=== PATIENT | female | born 1965 | race Caucasian/White ===

== ENCOUNTER 2021-03-18 14:03 | Emergency (ER) | payer MEDICAID ==
[~2021-03-18 14:03] MED LIST: AMOX875T10 PO
== END 2021-03-18 17:59 | disposition left against medical advice (07) ==
LOC: ER 14:03
DX: J00 Acute nasopharyngitis [common cold] (principal); R05 Cough; R09.89 Other specified symptoms and signs involving the circulatory and respiratory systems; Z53.21 Procedure and treatment not carried out due to patient leaving prior to being seen by health care provider

== ENCOUNTER 2021-10-16 09:38 | Emergency (ER) | payer MEDICAID ==
[~2021-10-16] VITALS: Ht 160 cm; Wt 58.8 kg
[2021-10-16] MEDS ORDERED: GABA300C PO (10:03)
[2021-10-16] MEDS ORDERED: CHLO118M PO (10:03)
[2021-10-16] MEDS ORDERED: AMOX-117 PO (10:03)
[2021-10-16 10:08] VITALS: BP 125/72
== END 2021-10-16 19:02 | disposition home or self-care (01) ==
LOC: ER 09:38
DX: K05.10 Chronic gingivitis, plaque induced (principal); K02.9 Dental caries, unspecified; Z98.818 Other dental procedure status; Z88.8 Allergy status to other drugs, medicaments and biological substances; Z79.2 Long term (current) use of antibiotics; Z79.899 Other long term (current) drug therapy; Z86.14 Personal history of Methicillin resistant Staphylococcus aureus infection
CPT/HCPCS: 99283

== ENCOUNTER 2022-01-23 20:08 | Emergency (ER) | payer MEDICAID ==
[~2022-01-23] VITALS: Ht 157.5 cm; Wt 63.6 kg
[~2022-01-23 20:08] MED LIST changes: +CHLO118M PO; +GABA300C PO; +IBUP-1986 PO
[2022-01-23 20:21] VITALS: BP 133/69
[2022-01-23] MEDS ORDERED: ketorolac tromethamine 15mg/ml inj. IV ONE (22:00)
[2022-01-23] MEDS ORDERED: methylPREDNISolone sod succ 125mg/2ml vial IV ONE (22:00)
[2022-01-23] MEDS ORDERED: normal saline 1000ml 1,000 ML IV ONE (22:00)
[2022-01-23] MEDS ORDERED: iohexol 300mg/ml 100ml inj. ONE (22:18)
[2022-01-23 22:36] LABS: BASOPHILS # (AUTO) 0.1 X10'3 (0-0.2); BASOPHILS % (AUTO) 1.3 % (0-1); EOSINOPHILS # (AUTO) 0.6 X10'3 (0-0.9); EOSINOPHILS % (AUTO) 6.3 % (0-6); HEMATOCRIT 43.4 % (35.0-45.0); HEMOGLOBIN 15.1 g/dl (12.0-16.0); LYMPHOCYTES # (AUTO) 1.6 X10'3 (1.1-4.8); LYMPHOCYTES % (AUTO) 16.4 % (21-51); MEAN CORPUSCULAR HEMOGLOBIN 29.9 PG (27.0-31.0); MEAN CORPUSCULAR HGB CONC 34.8 g/dL (33.0-36.5); MEAN CORPUSCULAR VOLUME 85.9 FL (78-98); MEAN PLATELET VOLUME 7.9 FL (7.4-10.4); MONOCYTES % (AUTO) 10.3 % (2-12); NEUTROPHILS # (AUTO) 6.3 X10'3 (1.8-7.7); NEUTROPHILS % (AUTO) 65.7 % (42-75); PLATELET COUNT 326 X10'3 (140-440); RED BLOOD COUNT 5.05 X10'6 (4.20-5.60); RED CELL DISTRIBUTION WIDTH 13.5 % (11.5-14.5); WHITE BLOOD COUNT 9.5 X10'3 (4.5-11.0)
[2022-01-23 22:45] LABS: ALANINE AMINOTRANSFERASE 113 U/L (12-78); ALBUMIN 3.6 G/DL (3.4-5.0); ALKALINE PHOSPHATASE 112 IU/L (46-116); ANION GAP 5 (8-16); ASPARTATE AMINO TRANSFERASE 59 U/L (10-37); BILIRUBIN,TOTAL 0.3 MG/DL (0.1-1.0); BLOOD UREA NITROGEN 17 MG/DL (7-18); BUN/CREATININE RATIO 23.3 (6.6-38.0); CALCIUM 8.9 MG/DL (8.5-10.1); CHLORIDE 105 MMOL/L (99-107); CREATININE 0.73 MG/DL (0.40-0.90); GLUCOSE 94 MG/DL (70-104); POTASSIUM 3.7 MMOL/L (3.5-5.1); SODIUM 141 MMOL/L (135-145); TOTAL CARBON DIOXIDE 30.9 MMOL/L (24-32); TOTAL PROTEIN 7.1 G/DL (6.4-8.2); eGFR 82 ML/MIN
[2022-01-24] MEDS ORDERED: AMOX-117 PO (00:11)
[2022-01-24] MEDS ORDERED: amox tr/potassium clavulanate 875/125mg TAB PO ONE (00:15)
== END 2022-01-24 00:48 | disposition home or self-care (01) ==
LOC: ER 20:09
DX: K11.20 Sialoadenitis, unspecified (principal); K08.89 Other specified disorders of teeth and supporting structures; F41.9 Anxiety disorder, unspecified; F17.200 Nicotine dependence, unspecified, uncomplicated; Z56.0 Unemployment, unspecified; Z59.00 Homelessness unspecified; Z98.890 Other specified postprocedural states; Z86.14 Personal history of Methicillin resistant Staphylococcus aureus infection; Z88.1 Allergy status to other antibiotic agents; Z79.2 Long term (current) use of antibiotics; Z79.899 Other long term (current) drug therapy
CPT/HCPCS: 36415; 70491; 80053; 85025; 96374; 96375; 99285; J1885; J2930; J7030; Q9967

== ENCOUNTER 2022-11-17 04:26 | Emergency (ER) | payer MEDICAID ==
[~2022-11-17] VITALS: Ht 157.5 cm; Wt 50.0 kg
[2022-11-17] MEDS ORDERED: quetiapine 100mg tablet PO SCH (05:20)
[2022-11-17] MEDS ORDERED: QUET25TA PO (05:29)
[2022-11-17 05:52] VITALS: BP 145/72
== END 2022-11-17 05:54 | disposition home or self-care (01) ==
LOC: ER 04:27
DX: Z00.00 Encounter for general adult medical examination without abnormal findings (principal); F11.23 Opioid dependence with withdrawal; F17.200 Nicotine dependence, unspecified, uncomplicated; F15.20 Other stimulant dependence, uncomplicated; Z88.1 Allergy status to other antibiotic agents; Z59.00 Homelessness unspecified; Z56.0 Unemployment, unspecified
CPT/HCPCS: 99283

== ENCOUNTER 2022-12-25 11:54 | Emergency (ER) | payer MEDICAID ==
[~2022-12-25] VITALS: Ht 157.5 cm; Wt 61.0 kg
[~2022-12-25 11:54] MED LIST changes: +QUET25TA PO
[2022-12-25 12:07] VITALS: BP 144/69
[2022-12-25] MEDS ORDERED: iohexol 300mg/ml 100ml inj. ONE (14:48)
[2022-12-25] MEDS ORDERED: dexamethasone sod phosphate 10mg/ml inj PO STA (16:42)
[2022-12-25] MEDS ORDERED: BENZ1LOZ74 PO (16:44)
[2022-12-25] MEDS ORDERED: ibuprofen tablet 400 MG TABLET PO ONE (16:50)
== END 2022-12-25 17:18 | disposition home or self-care (01) ==
LOC: ER 11:55
DX: J39.2 Other diseases of pharynx (principal); F17.200 Nicotine dependence, unspecified, uncomplicated; Z88.1 Allergy status to other antibiotic agents; Z59.00 Homelessness unspecified; Z56.0 Unemployment, unspecified
CPT/HCPCS: 70491; 99285; J1100; J3490; Q9967

== ENCOUNTER 2023-02-07 08:10 | Day surgery (SDC) | payer MEDICAID ==
[~2023-02-07] VITALS: Ht 165.1 cm; Wt 64.1 kg
[~2023-02-07 08:10] MED LIST changes: +BENZ1LOZ74 PO
[2023-02-07 08:17] VITALS: BP 119/69
[2023-02-07] MEDS ORDERED: IBUP-1984 PO (08:22)
[2023-02-07] MEDS ORDERED: QUET25TA PO (08:22)
[2023-02-07] MEDS ORDERED: fentaNYL/PF 50MCG/1 ML 2ML syringe ONE (08:55)
[2023-02-07] MEDS ORDERED: LIDOcaine Viscous 15ml cup ONE (08:55)
[2023-02-07] MEDS ORDERED: MIDAZolam 1 MG/ML 5ML VIAL ONE (08:55)
[2023-02-07 09:35] VITALS: BP 136/71
[2023-02-07 09:45] VITALS: BP 134/73
[2023-02-07 09:55] VITALS: BP 126/71
[2023-02-07 10:05] VITALS: BP 122/70
== END 2023-02-07 10:10 | disposition home or self-care (01) ==
LOC: GI LAB 08:10
PROVIDERS: ATTEND Internal Medicine Gastroenterology
DX: K21.9 Gastro-esophageal reflux disease without esophagitis (principal); K44.9 Diaphragmatic hernia without obstruction or gangrene; K22.89 Other specified disease of esophagus; Z88.1 Allergy status to other antibiotic agents; Z87.891 Personal history of nicotine dependence
CPT/HCPCS: 43239; 99152; J2250; J3010; J7030; Z7512; A4620

== ENCOUNTER 2024-03-29 10:44 | Emergency (ER) | payer MEDICAID ==
[~2024-03-29] VITALS: Ht 157.5 cm; Wt 60.5 kg
[~2024-03-29 10:44] MED LIST changes: -AMOX875T10 PO; -BENZ1LOZ74 PO; -CHLO118M PO; -GABA300C PO; +IBUP-1984 PO
[2024-03-29 10:47] VITALS: BP 108/53; PULSE 97; O2SAT 96
[2024-03-29 11:22] VITALS: RESP 15; TEMP 97.1
== END 2024-03-29 11:23 | disposition home or self-care (01) ==
LOC: ER 10:45
DX: Z02.89 Encounter for other administrative examinations (principal); F41.9 Anxiety disorder, unspecified; F15.90 Other stimulant use, unspecified, uncomplicated; F11.90 Opioid use, unspecified, uncomplicated; Z56.0 Unemployment, unspecified; Z59.00 Homelessness unspecified; Z88.1 Allergy status to other antibiotic agents; Z79.1 Long term (current) use of non-steroidal anti-inflammatories (NSAID); Z79.899 Other long term (current) drug therapy
CPT/HCPCS: 99281

== ENCOUNTER 2024-04-04 18:23 | Emergency (ER) | payer MEDICAID ==
[~2024-04-04] VITALS: Ht 157.5 cm; Wt 63.0 kg
[2024-04-04 20:59] LABS: BASOPHILS # (AUTO) 0.1 X10'3 (0-0.2); BASOPHILS % (AUTO) 0.8 % (0-1); EOSINOPHILS # (AUTO) 0.8 X10'3 (0-0.9); EOSINOPHILS % (AUTO) 8.4 % (0-6); HEMATOCRIT 40.4 % (35.0-45.0); HEMOGLOBIN 13.6 g/dl (12.0-16.0); LYMPHOCYTES # (AUTO) 1.3 X10'3 (1.1-4.8); MEAN CORPUSCULAR HGB CONC 33.8 g/dL (33.0-36.5); MEAN CORPUSCULAR VOLUME 88.9 FL (78-98); MEAN PLATELET VOLUME 7.6 FL (7.4-10.4); MONOCYTES # (AUTO) 1.1 X10'3 (0-0.9); MONOCYTES % (AUTO) 12.3 % (2-12); NEUTROPHILS % (AUTO) 64.5 % (42-75); PLATELET COUNT 309 X10'3 (140-440); RED BLOOD COUNT 4.55 X10'6 (4.20-5.60); RED CELL DISTRIBUTION WIDTH 13.5 % (11.5-14.5); WHITE BLOOD COUNT 9.3 X10'3 (4.5-11.0)
[2024-04-04 21:03] LABS: ALBUMIN 3.3 G/DL (3.4-5.0); ANION GAP 6 (8-16); BLOOD UREA NITROGEN 8 MG/DL (7-18); BUN/CREATININE RATIO 11.3 (10.0-20.0); CALCIUM 8.7 MG/DL (8.5-10.1); CHLORIDE 104 MMOL/L (99-107); CREATININE 0.71 MG/DL (0.40-0.90); GLUCOSE 89 MG/DL (70-104); POTASSIUM 4.2 MMOL/L (3.5-5.1); SODIUM 143 MMOL/L (135-145); TOTAL CARBON DIOXIDE 32.7 MMOL/L (24-32); eCRCL 67 ML/MIN; eGFR 84 ML/MIN
[2024-04-04] MEDS: dexamethasone sod phosphate 10mg/ml inj IV STA (21:38)
[2024-04-04] MEDS ORDERED: amox tr/potassium clavulanate 875/125mg TAB PO ONE (23:00)
[2024-04-04 23:02] VITALS: BP 133/65; PULSE 75; RESP 16; TEMP 97.7; O2SAT 98
[2024-04-04] MEDS ORDERED: DEC4T PO (23:02)
[2024-04-04] MEDS ORDERED: AMOX-117 PO (23:02)
== END 2024-04-04 23:10 | disposition home or self-care (01) ==
LOC: ER 18:23
DX: R59.1 Generalized enlarged lymph nodes (principal); F15.90 Other stimulant use, unspecified, uncomplicated; Z88.1 Allergy status to other antibiotic agents; Z79.2 Long term (current) use of antibiotics; Z79.899 Other long term (current) drug therapy; Z79.1 Long term (current) use of non-steroidal anti-inflammatories (NSAID)
CPT/HCPCS: 36415; 70490; 80048; 85025; 96374; 99285; J1100

== ENCOUNTER 2024-08-04 09:14 | Emergency (ER) | payer MEDICAID ==
[~2024-08-04] VITALS: Ht 158.8 cm; Wt 64.5 kg
[~2024-08-04 09:14] MED LIST changes: +DEC4T PO
[2024-08-04 09:26] VITALS: BP 109/63; PULSE 93; RESP 18; TEMP 96; O2SAT 95
[2024-08-04] MEDS ORDERED: MUPI22OI30 TOP (09:38)
== END 2024-08-04 09:50 | disposition home or self-care (01) ==
LOC: ER 09:15
DX: L08.89 Other specified local infections of the skin and subcutaneous tissue (principal); B95.7 Other staphylococcus as the cause of diseases classified elsewhere; F15.90 Other stimulant use, unspecified, uncomplicated; F11.90 Opioid use, unspecified, uncomplicated; Z76.0 Encounter for issue of repeat prescription; Z88.1 Allergy status to other antibiotic agents; Z79.1 Long term (current) use of non-steroidal anti-inflammatories (NSAID); Z79.899 Other long term (current) drug therapy; Z59.00 Homelessness unspecified; Z56.0 Unemployment, unspecified
CPT/HCPCS: 99281; 99282

== ENCOUNTER 2024-09-12 15:34 | Emergency (ER) | payer MEDICAID ==
[~2024-09-12] VITALS: Ht 157.5 cm; Wt 65.9 kg
[2024-09-12 15:38] VITALS: TEMP 98.5
[2024-09-12 16:18] LABS: BASOPHILS # (AUTO) 0.1 X10'3 (0-0.2); BASOPHILS % (AUTO) 0.8 % (0-1); EOSINOPHILS # (AUTO) 0.3 X10'3 (0-0.9); HEMATOCRIT 37.3 % (35.0-45.0); HEMOGLOBIN 12.7 g/dl (12.0-16.0); LYMPHOCYTES # (AUTO) 0.6 X10'3 (1.1-4.8); MEAN CORPUSCULAR HEMOGLOBIN 29.2 PG (27.0-31.0); MEAN CORPUSCULAR HGB CONC 34.2 g/dL (33.0-36.5); MEAN CORPUSCULAR VOLUME 85.4 FL (78-98); MEAN PLATELET VOLUME 7.3 FL (7.4-10.4); MONOCYTES # (AUTO) 0.7 X10'3 (0-0.9); MONOCYTES % (AUTO) 10.2 % (2-12); NEUTROPHILS # (AUTO) 4.8 X10'3 (1.8-7.7); PLATELET COUNT 299 X10'3 (140-440); RED BLOOD COUNT 4.36 X10'6 (4.20-5.60); RED CELL DISTRIBUTION WIDTH 15.3 % (11.5-14.5); WHITE BLOOD COUNT 6.5 X10'3 (4.5-11.0)
[2024-09-12 16:35] LABS: ALANINE AMINOTRANSFERASE 23 U/L (12-78); ALBUMIN 3.7 G/DL (3.4-5.0); ALBUMIN/GLOBULIN RATIO 0.9 (1.1-1.5); ALKALINE PHOSPHATASE 134 IU/L (46-116); ANION GAP 5 (8-16); ASPARTATE AMINO TRANSFERASE 20 U/L (10-37); BILIRUBIN,TOTAL 0.4 MG/DL (0.1-1.0); BLOOD UREA NITROGEN 8 MG/DL (7-18); CALCIUM 9.1 MG/DL (8.5-10.1); CHLORIDE 104 MMOL/L (99-107); CREATININE 0.73 MG/DL (0.40-0.90); GLUCOSE 101 MG/DL (70-104); SODIUM 140 MMOL/L (135-145); TOTAL CARBON DIOXIDE 31.2 MMOL/L (24-32); TOTAL PROTEIN 7.6 G/DL (6.4-8.2); eCRCL 65 ML/MIN; eGFR 81 ML/MIN
[2024-09-12 16:43] LABS: PRO BRAIN NATRIURETIC PEPTIDE 50 PG/ML (0-125)
[2024-09-12 17:24] LABS: POTASSIUM 3.5 MMOL/L (3.5-5.1)
[2024-09-12] MEDS ORDERED: CIPR-202 PO (18:32)
[2024-09-12] MEDS: ketorolac trometh 15mg/ml vial 15 MG/ML ML IV ONE (20:25)
[2024-09-12] MEDS: normal saline 1000ml 1,000 ML IV ONE (20:25)
[2024-09-12] MEDS: ciprofloxacin/D5W 200mg/100mL 100 ML IV ONE (20:30)
[2024-09-13 00:31] VITALS: BP 145/66; PULSE 88; RESP 16; O2SAT 99
== END 2024-09-13 00:33 | disposition home or self-care (01) ==
LOC: ER 15:35
DX: R07.89 Other chest pain (principal); J06.9 Acute upper respiratory infection, unspecified; F15.90 Other stimulant use, unspecified, uncomplicated; Z88.1 Allergy status to other antibiotic agents
CPT/HCPCS: 36415; 71045; 80053; 83880; 84484; 85025; 93005; 96365; 96375; 99285; J0744; J1885; J7030

== ENCOUNTER 2024-10-30 10:13 | Emergency (ER) | payer MEDICAID ==
[~2024-10-30] VITALS: Ht 157.5 cm; Wt 66.4 kg
[2024-10-30 10:49] LABS: BASOPHILS # (AUTO) 0.1 X10'3 (0-0.2); BASOPHILS % (AUTO) 1.5 % (0-1); EOSINOPHILS # (AUTO) 0.4 X10'3 (0-0.9); EOSINOPHILS % (AUTO) 7.3 % (0-6); HEMATOCRIT 38.8 % (35.0-45.0); HEMOGLOBIN 13.1 g/dl (12.0-16.0); LYMPHOCYTES # (AUTO) 0.7 X10'3 (1.1-4.8); LYMPHOCYTES % (AUTO) 13.7 % (21-51); MEAN CORPUSCULAR HEMOGLOBIN 31.4 PG (27.0-31.0); MEAN CORPUSCULAR HGB CONC 33.8 g/dL (33.0-36.5); MEAN CORPUSCULAR VOLUME 92.7 FL (78-98); MEAN PLATELET VOLUME 7.6 FL (7.4-10.4); MONOCYTES # (AUTO) 0.6 X10'3 (0-0.9); MONOCYTES % (AUTO) 10.5 % (2-12); NEUTROPHILS # (AUTO) 3.7 X10'3 (1.8-7.7); PLATELET COUNT 339 X10'3 (140-440); RED BLOOD COUNT 4.19 X10'6 (4.20-5.60); RED CELL DISTRIBUTION WIDTH 13.9 % (11.5-14.5); WHITE BLOOD COUNT 5.5 X10'3 (4.5-11.0)
[2024-10-30 11:07] LABS: ALANINE AMINOTRANSFERASE 41 U/L (12-78); ALBUMIN 3.4 G/DL (3.4-5.0); ALKALINE PHOSPHATASE 108 IU/L (46-116); ANION GAP 8 (8-16); ASPARTATE AMINO TRANSFERASE 21 U/L (10-37); BILIRUBIN,TOTAL 0.4 MG/DL (0.1-1.0); BLOOD UREA NITROGEN 9 MG/DL (7-18); CALCIUM 8.8 MG/DL (8.5-10.1); CHLORIDE 107 MMOL/L (99-107); CREATININE 0.53 MG/DL (0.40-0.90); GLUCOSE 103 MG/DL (70-104); POTASSIUM 3.5 MMOL/L (3.5-5.1); PRO BRAIN NATRIURETIC PEPTIDE 46 PG/ML (0-125); SODIUM 145 MMOL/L (135-145); TOTAL CARBON DIOXIDE 30.4 MMOL/L (24-32); TOTAL PROTEIN 6.8 G/DL (6.4-8.2); eCRCL 89 ML/MIN; eGFR > 90 ML/MIN
[2024-10-30 12:44] VITALS: BP 150/76; PULSE 84; RESP 16; TEMP 97.8; O2SAT 99
[2024-10-30 13:32] LABS: STREP A SCREEN NEGATIVE (Neg)
== END 2024-10-30 13:54 | disposition home or self-care (01) ==
LOC: ER 10:13
DX: J06.9 Acute upper respiratory infection, unspecified (principal); F41.9 Anxiety disorder, unspecified; F15.90 Other stimulant use, unspecified, uncomplicated; F11.90 Opioid use, unspecified, uncomplicated; Z88.1 Allergy status to other antibiotic agents; Z79.52 Long term (current) use of systemic steroids; Z79.1 Long term (current) use of non-steroidal anti-inflammatories (NSAID); Z79.899 Other long term (current) drug therapy; Z56.0 Unemployment, unspecified; Z59.00 Homelessness unspecified
CPT/HCPCS: 36415; 71045; 80053; 83880; 84484; 85025; 87081; 87880; 93005; 99285

== ENCOUNTER 2024-11-17 17:55 | Emergency (ER) | payer MEDICAID ==
[~2024-11-17] VITALS: Ht 157.5 cm; Wt 67.0 kg
[2024-11-17 17:56] VITALS: BP 121/42; PULSE 90; RESP 16; TEMP 98.1; O2SAT 96
[2024-11-17] MEDS ORDERED: dexamethasone sod phosphate 10mg/ml inj PO STA (18:54)
[2024-11-17] MEDS ORDERED: PRED10TA23 PO (19:07)
[2024-11-17] MEDS ORDERED: AMOX500C2 PO (19:07)
[2024-11-17] MEDS: amoxicillin 250mg capsule PO ONE (19:19)
[2024-11-17] MEDS: DEXAMETHASONE 6 MG TABLET PO STA (19:19)
[2024-11-17] MEDS: dexamethasone 4mg tablet PO STA (19:19)
== END 2024-11-17 19:25 | disposition home or self-care (01) ==
LOC: ER 17:56
DX: K04.7 Periapical abscess without sinus (principal); F41.9 Anxiety disorder, unspecified; F15.90 Other stimulant use, unspecified, uncomplicated; F11.90 Opioid use, unspecified, uncomplicated; Z88.1 Allergy status to other antibiotic agents; Z79.1 Long term (current) use of non-steroidal anti-inflammatories (NSAID); Z79.899 Other long term (current) drug therapy; Z56.0 Unemployment, unspecified; Z59.00 Homelessness unspecified
CPT/HCPCS: 99284; J8540

== ENCOUNTER 2025-05-31 11:13 | Emergency (ER) | payer MEDICAID ==
[~2025-05-31] VITALS: Ht 157.5 cm; Wt 70.0 kg
[2025-05-31 12:31] LABS: MEAN PLATELET VOLUME 7.0 FL (7.4-10.4); RED CELL DISTRIBUTION WIDTH 16.8 % (11.5-14.5)
[2025-05-31 12:36] LABS: CREATININE 0.66 MG/DL (0.40-0.90); TOTAL CARBON DIOXIDE 31.5 MMOL/L (24-32); eCRCL 72 ML/MIN; eGFR > 90 ML/MIN
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
[2025-05-31] MEDS ORDERED: iohexol 300mg/ml 100ml inj. ONE (13:19)
--- NOTE | 2025-05-31 17:43 | RADIOLOGY REPORT ---
EXAM: CT CT NECK SOFT TISSUES W/ IV CONTRAST INDICATION: pain under chin several weeks, hx of MRSA infection in this region TECHNIQUE: Volumetric multidetector CT images of the cervical soft tissues were obtained after admini stration of 100 ml low osmolar intravenous contrast. All CT scans at this facility use dose modulatio n, iterative reconstruction, and/or weight based dosing when appropriate to reduce radiation dose to as low as reasonably achievable. COMPARISON: CT CT NECK SOFT TISSUES on DOS: 04/04/24 FINDINGS: [ORBITS, PARANASAL SINUSES, AND SKULL BASE]: Normal. [NASOPHARYNX: Normal. [SUPRAHYOID NECK]: Slight prominence of the adenoid tonsils, palatine tonsils with bilateral palatine tonsilliths. Finding may be reactive. Mild prominence of bilateral submandibular glands which appea rs to be symmetric with slight enhancement correlate for reactive sialoadenitis. Parotid gland are sy mmetric. [INFRAHYOID NECK]: Normal appearance of the larynx, hypopharynx, and supraglottis. [THYROID]: Normal appearance of the thyroid gland. [LYMPH NODES]: There is no pathologically enlarged or necrotic lymph nodes. Bilateral symmetric likel y reactive cervical chain lymph nodes. [VASCULATURE STRUCTURES]: The vascular structures of the neck appear patent. [OTHER]: The visualized lung apices are clear. The limited visualized portions of the brain are unrem arkable. The osseous structures are unremarkable. IMPRESSION: 1. No evidence of cervical mass lesion, pathologically enlarged lymph nodes or fluid collection. 2. No drainable fluid collection. 3. Slight prominence of the adenoid tonsils, palatine tonsils with bilateral palatine tonsilliths. F inding may be reactive. 4. Mild prominence of bilateral submandibular glands which appears to be symmetric with slight enhanc ement correlate for reactive sialoadenitis. 5. Bilateral symmetric likely reactive cervical chain lymph nodes.
[2025-05-31] MEDS ORDERED: AMOX-117 PO (17:56)
[2025-05-31] MEDS: amox tr/potassium clavulanate 875/125mg TAB PO ONE (18:08)
[2025-05-31 18:14] VITALS: BP 125/55; PULSE 82; RESP 18; TEMP 97.9; O2SAT 98
== END 2025-05-31 18:10 | disposition home or self-care (01) ==
LOC: ER 11:13
DX: K11.20 Sialoadenitis, unspecified (principal); F15.90 Other stimulant use, unspecified, uncomplicated; F11.90 Opioid use, unspecified, uncomplicated; F41.9 Anxiety disorder, unspecified; Z88.1 Allergy status to other antibiotic agents; Z79.899 Other long term (current) drug therapy; Z56.0 Unemployment, unspecified; Z59.00 Homelessness unspecified; Z86.14 Personal history of Methicillin resistant Staphylococcus aureus infection
CPT/HCPCS: 36415; 70491; 80048; 85025; 99285; Q9967

== ENCOUNTER 2025-08-19 10:17 | Emergency (ER) | payer MEDICAID ==
[~2025-08-19] VITALS: Ht 157.5 cm; Wt 68.4 kg
[2025-08-19 10:27] VITALS: BP 155/72; PULSE 120; RESP 16; TEMP 98; O2SAT 98
--- NOTE | 2025-08-19 12:26 | Physician Documentation ---
History of Present Illness ~ General Chief Complaint: See Chief Complaint Stated Complaint: METH ABUSE Time Seen by MD: 12:15 Primary Medical Doctor: [facility] History of Present Illness Initial Comments 60-year-old female presents after relapsing on methamphetamine three days ago she has now developed throat pain and feeling like her throat swollen.. Denies any chest pain or shortness of breath Medication Reconciliation Allergies: Coded Allergies: doxycycline (Verified Allergy, Unknown, burning to feet and hands., 10/30/24) Scheduled Amoxicillin Trihydrate (Amoxicillin), 1 CAP PO Q12H Dexamethasone (Decadron), 2 TAB PO DAILY Ibuprofen (Ibuprofen), 1 TAB PO Q8H Ibuprofen* (Motrin*), 800 MG PO HS, (Reported) Quetiapine Fumarate (Seroquel), 1 TAB PO HS Quetiapine Fumarate (Seroquel), 1 TAB PO HS, (Reported) Past Medical History Past Medical History: MRSA Abscess, Anxiety Past Surgical History: other Drug Use: methamphetamine, heroin Lives In: Homeless Occupation: unemployed Physical Exam Physical Exam Vital Signs: Temperature: 98.0, Source: Temporal, Heart Rate: 120, Respiratory Rate: 16, BP: 155/72, Pulse Oximetry: 98, Weight: 68.400 Oxygen Flow Rate: 0 Progress Results/Orders Results/Orders Orders - GEO REINA FENDER REPAIRER Chest,Single View (08/19/25 12:38) Completed Orders - GEO REINA FENDER REPAIRER Chest,Single View (08/19/25 12:38) Vital Signs 08/19/25 08/19/25 10:27 13:14 Temp 98.0 Pulse 120 Resp 16 B/P (MAP) 155/72 Pulse Ox 98 O2 Flow Rate 0 Medical Decision Making Additional information obtaine: old records Findings This patient is also complaining of mouth pain however she does not have any remaining teeth that has they were all extracted. She does not have any trismus or submandibular swelling. I am going to treat her empirically this time and discharged for outpatient therapy Differential Diagnosis l Departure Disposition: HOME / SELF CARE / HOMELESS Impression: Primary Impression: General medical exam Additional Impression: Toothache Condition: Improved Discharge Instructions: Methamphetamines Use Disorder Referrals: NO PRIMARY CARE PROVIDER (PCP) Prescriptions Amoxicillin Trihydrate (Amoxicillin) 500 Mg Capsule 1 CAP PO Q12H for 10 Days, #20 CAP Prov: GEO REINA NP 08/19/25 Signature Scribe Signature: de Attestation: Scribed for Geo Reina Np by Geo Callahan NP . 08/19/25 18:39 GEO REINA NP Aug 19, 2025 12:26
--- NOTE | 2025-08-19 12:49 | RADIOLOGY REPORT ---
EXAM: DI CHEST,SINGLE VIEW Indication: cough Technique: Single frontal view of the chest was obtained Comparison: DI CHEST,SINGLE VIEW on DOS: 10/30/24, DI CHEST,SINGLE VIEW on DOS: 09/12/24 FINDINGS: Lines and Tubes: None Lungs: No focal consolidation. Pleura: No effusion. No pneumothorax. Cardiomediastinal contours: Unremarkable Bones: No acute osseous abnormality. IMPRESSION: No acute cardiopulmonary disease.
[2025-08-19] MEDS ORDERED: AMOX-101 PO (12:56)
[2025-08-20] MEDS ORDERED: IBUP-1986 PO (18:50)
[2025-08-20] MEDS ORDERED: SULF1TAB49 PO (18:50)
== END 2025-08-19 13:16 | disposition home or self-care (01) ==
LOC: ER 10:17
DX: Z00.00 Encounter for general adult medical examination without abnormal findings (principal); K08.89 Other specified disorders of teeth and supporting structures; F15.90 Other stimulant use, unspecified, uncomplicated; F11.90 Opioid use, unspecified, uncomplicated; Z88.0 Allergy status to penicillin; Z88.1 Allergy status to other antibiotic agents
CPT/HCPCS: 71045; 99283

== ENCOUNTER 2025-08-20 17:35 | Emergency (ER) | payer MEDICAID ==
[~2025-08-20] VITALS: Ht 157.5 cm; Wt 65.9 kg
[~2025-08-20 17:35] MED LIST changes: +AMOX-101 PO
--- NOTE | 2025-08-20 18:49 | Physician Documentation ---
History of Present Illness ~ Chief Complaint: Jaw Pain Stated Complaint: ABCESS Time Seen by MD: 18:03 Primary Medical Doctor: [facility] This is a 60-year-old female who presents with an area of pain and swelling to her chin, patient reports no fevers or chills or other systemic symptoms. Patient reports no other acute symptoms or concerns. Tetanus Within 5 Years: No Medication Reconciliation Allergies: Coded Allergies: doxycycline (Verified Allergy, Unknown, burning to feet and hands., 08/20/25) Scheduled Amoxicillin Trihydrate (Amoxicillin), 1 CAP PO Q12H Dexamethasone (Decadron), 2 TAB PO DAILY Ibuprofen (Ibuprofen), 1 TAB PO Q8H Ibuprofen (Ibuprofen), 1 TAB PO Q8H Ibuprofen* (Motrin*), 800 MG PO HS, (Reported) Quetiapine Fumarate (Seroquel), 1 TAB PO HS Quetiapine Fumarate (Seroquel), 1 TAB PO HS, (Reported) Sulfamethoxazole/Trimethoprim (Bactrim Ds Tablet), 1 TAB PO Q12H Past Medical History Past Medical History: MRSA Abscess, Anxiety Past Surgical History: other Drug Use: methamphetamine, heroin Lives In: Homeless Occupation: unemployed Review of Systems ROS As stated above in the HPI, otherwise all systems are reviewed and negative. Physical Exam Vital Signs: Temperature: 97.5, Source: Temporal, Heart Rate: 91, Respiratory Rate: 18, BP: 146/71, Pulse Oximetry: 98, Weight: 65.910 Physical Exam VITALS: Reviewed and as above. GENERAL: Alert, nontoxic appearing, no apparent distress. HEENT: Facial swelling, no submandibular swelling, no elevation of the tongue rolling, no teeth RESPIRATORY: No increased work of breathing, no respiratory distress, speaking in full clear sentences SKIN: Skin of chin non erythematous, small area of possible fluctuance, no induration Procedures Procedure Note Aspiration of area of fluctuance was attempted, after informed consents area was cleansed and utilizing an 18 gauge needle and attempted to aspirate the area of palpated fluctuance with no return of material, the area was dressed. Patient tolerated procedure without complications. Progress Results/Orders Results/Orders Completed Orders - JOSE CRUZ CONTROL CLERK SUBASSEMBLY Ketorolac Trometh 15mg/Ml Vial (Toradol (08/20/25 18:40) Sulfamethox/Trimetho. Ds Tab (Septra Ds (08/20/25 18:40) Medications Received in ER Medications (Trade) Dose Ordered Sig/Sole Route PRN Reason Start Time Stop Time Status Last Admin Dose Admin (Toradol injection) 15 mg ONCE ONCE IM 08/20/25 18:40 08/20/25 18:41 DC 08/20/25 19:02 15 MG (Septra DS tab) 1 tab ONCE ONCE PO 08/20/25 18:40 08/20/25 18:41 DC 08/20/25 19:01 1 TAB Vital Signs 08/20/25 08/20/25 08/20/25 17:39 19:02 19:17 Temp 97.5 98.0 Pulse 91 105 Resp 18 16 18 B/P (MAP) 146/71 152/71 Pulse Ox 98 98 Medical Decision Making Additional information obtaine: N/A Findings This is a 60-year-old female who presented with two days of pain and swelling to her chin, physical exam did not demonstrate an area of erythema though possible fluctuance was belt though unable to withdrawal material when attempting asp iration of the area, given patient's history of MRSA hand palpated area of fluctuance we will treat as possible phlegmon. Patient is otherwise well- appearing and appropriate for outpatient follow up. Patient medicated for pain in department and received 1st dose of antibiotic. Patient provided home care instructions return to care precautions, and follow up instructions which he verbalized understanding of. Differential Dx:Considerations: Include: Abrasion, Contusion, Foreign body, Fracture, facial, Laceration, Other (Abscess cellulitis) Departure Time of Disposition: 18:46 Disposition: 01 HOME / SELF CARE / HOMELESS Impression: Primary Impression: Phlegmon Condition: Improved Discharge Instructions: Abscess, Care After Additional Instructions: Use warm moist compresses on the area two to 3 times a day, otherwise keep the area clean and dry. Please take the antibiotics as prescribed. Please follow up with your primary care provider in the next few days. Please return to the emergency department for any new or worsening concerning symptoms. Referrals: NO PRIMARY CARE PROVIDER (PCP) Prescriptions Sulfamethoxazole/Trimethoprim (Bactrim Ds Tablet) 800 Mg-160 Mg Tablet 1 TAB PO Q12H for 7 Days, #14 TAB Prov: JOSE CRUZ CONTROL CLERK SUBASSEMBLY 08/20/25 Ibuprofen (Ibuprofen) 800 Mg Tablet 1 TAB PO Q8H for pain for 10 Days, #30 TAB 0 Refills Prov: JOSE CRUZ 08/20/25 Education Educated: Patient Educated regarding: diagnosis, treatment, prognosis, need for follow up Signature Scribe Signature: No scribe Attestation: The note accurately reflects work and decisions made by me.KENDRA Veras 08/20/25 23:29 JOSE CRUZP Aug 20, 2025 18:49
[2025-08-20] MEDS ORDERED: IBUP-1986 PO (18:50)
[2025-08-20] MEDS ORDERED: SULF1TAB49 PO (18:50)
[2025-08-20] MEDS: sulfamethoxazole/trimethoprim DS (800/160mg) tablet PO ONE (19:01)
[2025-08-20] MEDS: ketorolac trometh 15mg/ml vial 15 MG/ML ML IM ONE (19:02)
[2025-08-20 19:17] VITALS: BP 152/71; PULSE 105; RESP 18; TEMP 98; O2SAT 98
== END 2025-08-20 19:23 | disposition home or self-care (01) ==
LOC: ER 17:36
DX: L02.01 Cutaneous abscess of face (principal); F15.90 Other stimulant use, unspecified, uncomplicated; F11.90 Opioid use, unspecified, uncomplicated; Z86.14 Personal history of Methicillin resistant Staphylococcus aureus infection; Z88.1 Allergy status to other antibiotic agents; Z79.899 Other long term (current) drug therapy; Z59.00 Homelessness unspecified; Z56.0 Unemployment, unspecified
CPT/HCPCS: 10160; 96372; 99284; J1885

== ENCOUNTER 2025-09-17 14:32 | Outpatient (CLI) | payer MEDICAID ==
[~2025-09-17 14:32] MED LIST changes: -AMOX-101 PO; +iohexol 300mg/ml 100ml inj. ONE
--- NOTE | 2025-09-17 19:45 | RADIOLOGY REPORT ---
CT maxillofacial with Contrast CLINICAL HISTORY: CHRONIC INFECTION TECHNIQUE: CT of the maxillofacial region was performed with 100 ml of omnipaque 300 administered intravenously. This exam was performed according to our departmental dose optimization program. Up-to-date CT equipment and radiation dose reduction techniques are utilized as appropriate. WID: COMPARISON: None Neck findings: Brain and Orbits: The visualized intracranial and intraorbital structures appear grossly unremarkable. Sinuses and Mastoids: The visualized paranasal sinuses and mastoid air cells are clear aside from mild mucosal thickening of the bilateral maxillary sinuses . Tiny osteoma in an anterior right ethmoid air cell on series 3, image 58 Parotid and Submandibular Glands: The parotid and submandibular glands appear unremarkable. Cervical Lymph Nodes: No significant cervical adenopathy is seen. No fluid collection or soft tissue gas. Thyroid: No significant thyroid abnormalities are seen. Larynx and Hypopharynx: The larynx and hypopharynx appear normal. Oral Cavity, Oropharynx, and Nasopharynx: The base of the tongue, oropharyngeal region, and posterior nasopharynx appear unremarkable. Cervical Vasculature: The visualized carotid arteries are patent. There is calcified plaque in the intracranial internal carotid and supraclinoid ICAs. There is calcified plaque in the bilateral carotid bifurcations. Osseous Structures: No destructive osseous lesions are seen. The patient is edentulous. Multilevel mild cervical spondylosis. IMPRESSION: 1. No fluid collection, soft tissue gas, or lymphadenopathy. 2. Mild mucosal thickening of the bilateral maxillary sinuses.
== END 2025-09-17 23:59 | disposition home or self-care (01) ==
LOC: RAD 14:32
PROVIDERS: ATTEND Nurse Practitioner Family
DX: I65.23 Occlusion and stenosis of bilateral carotid arteries (principal); B99.9 Unspecified infectious disease; J32.0 Chronic maxillary sinusitis
CPT/HCPCS: 70488; Q9967